=== PATIENT | male | born 1980 | race Caucasian/White ===

== ENCOUNTER 2020-02-14 11:02 | Observation (INO) ==
[2020-02-14] MEDS ORDERED: *HR* LORazepam 1 MG TABLET PO ONE (11:24)
[2020-02-14 11:45] LABS: Basophils # 0.1 K/mcL (0.0-0.2); Basophils % 0.7 %; Eosinophils # 0.1 K/mcL (0.0-0.6); Eosinophils % 0.8 %; Hematocrit 45.8 % (37.5-50.1); Hemoglobin 15.8 g/dL (12.9-16.9); Immature Granulocytes % 0.5 % (0-4); Lymphocytes # 2.4 K/mcL (0.6-4.6); Lymphocytes % 24.4 %; Mean Corpuscular HGB Conc 34.5 g/dL (31.6-35.5); Mean Corpuscular Hemoglobin 32.2 pg (28.0-33.3); Mean Corpuscular Volume 93.5 fL (83.0-100.0); Mean Platelet Volume 9.2 fL (9.4-12.4); Monocytes # 0.7 K/mcL (0.0-1.3); Monocytes % 6.9 %; Neutrophils # 6.6 K/mcL (1.6-8.9); Platelet Count 336 K/mcL (140-400); Red Cell Distribution Width 12.6 % (11.5-14.5); Segmented Neutrophils % 66.7 %; White Blood Count 9.9 K/mcL (4.3-11.1)
[2020-02-14 11:59] LABS: Amphetamine Screen,Urine Negative ng/mL (Cutoff=1000); Barbiturate Screen,Urine Negative ng/mL (Cutoff=200); Benzodiazepines Screen,Urine Negative ng/mL (Cutoff=200); Cannabinoid Screen,Urine Negative ng/mL (Cutoff = 50); Cocaine Screen,Urine Negative ng/mL (Cutoff= 300); Opiate Screen,Urine Negative ng/mL (Cutoff=300); Phencyclidine Screen,Urine Negative ng/mL (Cutoff=25)
[2020-02-14 12:00] LABS: Amorphous Sediment,Urine Few per hpf (None-Few); Bacteria,Urine Few per hpf (None-Few); Bilirubin,Urine Negative (Negative); Blood,Urine Negative (Negative); Clarity,Urine Turbid (Clear); Color,Urine Yellow (Yellow); Glucose,Urine (UA) Normal (Normal); Ketones,Urine Negative (Negative); Leukocyte Esterase,Urine Negative (Negative); Mucus,Urine Few per lpf (None-Few); Nitrite,Urine Negative (Negative); PH,Urine 7.5 pH Units (5.0-8.0); Protein,Urine Trace mg/dL (Neg-Trace); Specific Gravity,Urine 1.016 (1.010-1.025); Urobilinogen,Urine Normal (Normal); WBC,Urine 0-3 per hpf (0-3)
[2020-02-14 12:18] LABS: Acetaminophen < 10 mcg/mL (10-20); BUN/Creatinine Ratio 10 (6-26); Blood Urea Nitrogen 8 mg/dL (6-20); Calcium 9.6 mg/dL (8.6-10.3); Carbon Dioxide 23 mEq/L (23-29); Chloride 102 mEq/L (98-107); Ethanol < 10 mg/dL (Less than 10); Glucose 100 mg/dL (70-105); Osmolality,Calculated 280 (280-300); Potassium 3.7 mEq/L (3.5-5.1); Salicylate < 2.5 mg/dL (15.0-30.0); Sodium 136 mEq/L (136-145); eGFR For African Americans > 60 (> 60); eGFR For Non-African Americans > 60 (> 60)
[2020-02-14] MEDS ORDERED: Naloxone 0.4 MG/ML INJ IVP PRN (14:31)
[2020-02-14] MEDS ORDERED: Ondansetron 4 MG/2 ML VIAL IVP PRN (14:31)
[2020-02-14] MEDS ORDERED: *HR* LORazepam 2 MG/ML VIAL IVP PRN ×2 (14:36)
[2020-02-14] MEDS: Thiamine (B-1) 100 MG TABLET PO SCH (16:38)
[2020-02-14] MEDS: Folic Acid 1 MG TABLET PO SCH (16:38)
[2020-02-14] MEDS: 0.9 % Sodium Chloride 1,000 ML IVC SCH (16:38)
[2020-02-14] MEDS: *HR* Heparin 5,000 UNIT/ML VIAL SQ SCH (16:39)
[2020-02-14] MEDS: traZODone 50 MG TABLET PO SCH (20:02)
[2020-02-14] MEDS: QUEtiapine Fumarate 25 MG TABLET PO SCH (20:03)
[2020-02-15] MEDS: 0.9 % Sodium Chloride 1,000 ML IVC SCH (02:38)
[2020-02-15 04:31] LABS: Basophils # 0.1 K/mcL (0.0-0.2); Basophils % 0.8 %; Eosinophils # 0.1 K/mcL (0.0-0.6); Eosinophils % 1.4 %; Hematocrit 42.9 % (37.5-50.1); Hemoglobin 14.5 g/dL (12.9-16.9); Immature Granulocytes % 0.5 % (0-4); Lymphocytes # 3.2 K/mcL (0.6-4.6); Lymphocytes % 40.1 %; Mean Corpuscular HGB Conc 33.8 g/dL (31.6-35.5); Mean Corpuscular Hemoglobin 32.2 pg (28.0-33.3); Mean Corpuscular Volume 95.1 fL (83.0-100.0); Mean Platelet Volume 9.3 fL (9.4-12.4); Monocytes # 0.6 K/mcL (0.0-1.3); Monocytes % 7.2 %; Platelet Count 270 K/mcL (140-400); Red Blood Count 4.51 M/mcL (4.19-5.50); Red Cell Distribution Width 12.7 % (11.5-14.5)
[2020-02-15 04:51] LABS: BUN/Creatinine Ratio 10 (6-26); Blood Urea Nitrogen 10 mg/dL (6-20); Calcium 8.7 mg/dL (8.6-10.3); Carbon Dioxide 24 mEq/L (23-29); Chloride 106 mEq/L (98-107); Glucose 93 mg/dL (70-105); Osmolality,Calculated 285 (280-300); Sodium 138 mEq/L (136-145); eGFR For African Americans > 60 (> 60); eGFR For Non-African Americans > 60 (> 60)
[2020-02-15] MEDS: *HR* LORazepam 2 MG/ML VIAL IVP PRN ×2 (05:47→12:39)
[2020-02-15] MEDS: *HR* Heparin 5,000 UNIT/ML VIAL SQ SCH ×2 (05:47→18:19)
[2020-02-15] MEDS: Thiamine (B-1) 100 MG TABLET PO SCH (08:44)
[2020-02-15] MEDS: rOPINIRole 1 MG TABLET PO SCH (08:44)
[2020-02-15] MEDS: OLANZapine 10 MG TAB.RAPDIS PO SCH (08:44)
[2020-02-15] MEDS: FLUoxetine 20 MG CAPSULE PO SCH (08:44)
[2020-02-15] MEDS: lamoTRIgine 100 MG TABLET PO SCH (08:44)
[2020-02-15] MEDS: Folic Acid 1 MG TABLET PO SCH (08:44)
[2020-02-15] MEDS ORDERED: Naltrexone HCl 50 MG TABLET PO SCH (09:00)
[2020-02-15] MEDS: QUEtiapine Fumarate 25 MG TABLET PO SCH (20:11)
[2020-02-15] MEDS: traZODone 50 MG TABLET PO SCH (20:12)
[2020-02-16] MEDS: *HR* LORazepam 2 MG/ML VIAL IVP PRN ×2 (02:03→10:19)
[2020-02-16 02:48] LABS: Hematocrit 43.8 % (37.5-50.1); Hemoglobin 14.6 g/dL (12.9-16.9); Mean Corpuscular HGB Conc 33.3 g/dL (31.6-35.5); Mean Corpuscular Hemoglobin 32.6 pg (28.0-33.3); Mean Corpuscular Volume 97.8 fL (83.0-100.0); Mean Platelet Volume 9.6 fL (9.4-12.4); Platelet Count 286 K/mcL (140-400); Red Blood Count 4.48 M/mcL (4.19-5.50); Red Cell Distribution Width 12.9 % (11.5-14.5); White Blood Count 9.9 K/mcL (4.3-11.1)
[2020-02-16 03:09] LABS: Alanine Aminotransferase 16 Units/L (7-52); Albumin/Globulin Ratio 1.6 (1.1-2.2); Alkaline Phosphatase 85 Units/L (34-104); Aspartate Amino Transferase 16 Units/L (13-39); BUN/Creatinine Ratio 15 (6-26); Bilirubin,Total 0.5 mg/dL (0.3-1.0); Blood Urea Nitrogen 15 mg/dL (6-20); Calcium 8.9 mg/dL (8.6-10.3); Carbon Dioxide 26 mEq/L (23-29); Chloride 106 mEq/L (98-107); Globulin 2.5 g/dL (2.4-3.5); Glucose 101 mg/dL (70-105); Osmolality,Calculated 289 (280-300); Phosphorous 3.9 mg/dL (2.7-4.5); Potassium 3.8 mEq/L (3.5-5.1); Sodium 139 mEq/L (136-145); Total Protein 6.5 g/dL (6.4-8.9); eGFR For African Americans > 60 (> 60); eGFR For Non-African Americans > 60 (> 60)
[2020-02-16] MEDS: Nicotine 2 MG GUM BC PRN ×2 (03:16→08:52)
[2020-02-16] MEDS: *HR* Heparin 5,000 UNIT/ML VIAL SQ SCH (05:55)
[2020-02-16 05:59] VITALS: BP 103/69
[2020-02-16] MEDS: rOPINIRole 1 MG TABLET PO SCH (08:51)
[2020-02-16] MEDS: FLUoxetine 20 MG CAPSULE PO SCH (08:52)
[2020-02-16] MEDS: Thiamine (B-1) 100 MG TABLET PO SCH (08:52)
[2020-02-16] MEDS: OLANZapine 10 MG TAB.RAPDIS PO SCH (08:52)
[2020-02-16] MEDS: lamoTRIgine 100 MG TABLET PO SCH (08:52)
[2020-02-16] MEDS: Folic Acid 1 MG TABLET PO SCH (08:52)
== END 2020-02-16 14:44 ==
LOC: EMEROOARM 11:02 → 3BNU 11:02 → SUATTDRO 13:42 → 3BNU 14:41
PROVIDERS: ADMIT Internal Medicine; ATTEND Family Medicine

== ENCOUNTER 2020-10-08 09:21 | Observation (INO) ==
[2020-10-08] MEDS ORDERED: Folic Acid 1 MG in 0.9 % Sodium Chloride 50 ML IVPB STA (09:52)
[2020-10-08] MEDS ORDERED: Thiamine (B-1) 100 MG in 0.9 % Sodium Chloride 50 ML IVPB STA (09:52)
[2020-10-08] MEDS ORDERED: *HR* LORazepam 2 MG/ML VIAL IM ONE (09:52)
[2020-10-08] MEDS ORDERED: 0.9 % Sodium Chloride 1,000 ML IVC ONE (09:52)
[2020-10-08] MEDS ORDERED: *HR* LORazepam 2 MG/ML VIAL IVP PRN ×4 (09:53→13:34)
[2020-10-08] MEDS ORDERED: *HR* LORazepam 2 MG/ML VIAL IVP ONE (10:08)
[2020-10-08 10:15] LABS: Basophils # 0.1 K/mcL (0.0-0.2); Basophils % 0.7 %; Eosinophils % 0.4 %; Hematocrit 47.3 % (37.5-50.1); Immature Granulocytes % 0.6 % (0-4); Lymphocytes % 20.4 %; Mean Corpuscular HGB Conc 33.8 g/dL (31.6-35.5); Mean Corpuscular Hemoglobin 31.7 pg (28.0-33.3); Mean Corpuscular Volume 93.8 fL (83.0-100.0); Mean Platelet Volume 8.9 fL (9.4-12.4); Monocytes # 0.7 K/mcL (0.0-1.3); Monocytes % 6.9 %; Neutrophils # 6.8 K/mcL (1.6-8.9); Platelet Count 423 K/mcL (140-400); Red Blood Count 5.04 M/mcL (4.19-5.50); Red Cell Distribution Width 11.9 % (11.5-14.5); White Blood Count 9.5 K/mcL (4.3-11.1)
[2020-10-08 10:35] LABS: Acetaminophen < 10 mcg/mL (10-20); Alanine Aminotransferase 19 Units/L (7-52); Albumin 4.4 g/dL (3.5-5.7); Albumin/Globulin Ratio 1.5 (1.1-2.2); Alkaline Phosphatase 85 Units/L (34-104); Aspartate Amino Transferase 21 Units/L (13-39); BUN/Creatinine Ratio 10 (6-26); Bilirubin,Direct 0.1 mg/dL (0.0-0.2); Bilirubin,Indirect 0.5 mg/dL (0.0-1.0); Bilirubin,Total 0.6 mg/dL (0.3-1.0); Blood Urea Nitrogen 9 mg/dL (6-20); Calcium 9.1 mg/dL (8.6-10.3); Carbon Dioxide 26 mEq/L (23-29); Chloride 103 mEq/L (98-107); Ethanol < 10 mg/dL (Less than 10); Glucose 89 mg/dL (70-105); Osmolality,Calculated 282 (280-300); Potassium 3.6 mEq/L (3.5-5.1); Salicylate < 2.5 mg/dL (15.0-30.0); Sodium 137 mEq/L (136-145); Total Protein 7.4 g/dL (6.4-8.9); eGFR For African Americans > 60 (> 60); eGFR For Non-African Americans > 60 (> 60)
[2020-10-08 12:35] LABS: Bilirubin,Urine Negative (Negative); Blood,Urine Negative (Negative); Clarity,Urine Clear (Clear); Color,Urine Colorless (Yellow); Glucose,Urine (UA) Normal (Normal); Ketones,Urine Negative (Negative); Leukocyte Esterase,Urine Negative (Negative); Nitrite,Urine Negative (Negative); PH,Urine 7.5 pH Units (5.0-8.0); Protein,Urine Negative (Neg-Trace); Urobilinogen,Urine Normal (Normal)
[2020-10-08 12:43] LABS: Amphetamine Screen,Urine Negative ng/mL (Cutoff=1000); Barbiturate Screen,Urine Negative ng/mL (Cutoff=200); Benzodiazepines Screen,Urine Negative ng/mL (Cutoff=200); Cannabinoid Screen,Urine Negative ng/mL (Cutoff = 50); Cocaine Screen,Urine Negative ng/mL (Cutoff= 300); Opiate Screen,Urine Negative ng/mL (Cutoff=300); Phencyclidine Screen,Urine Negative ng/mL (Cutoff=25)
[2020-10-08] MEDS ORDERED: Melatonin 3 MG TABLET PO PRN (13:32)
[2020-10-08] MEDS ORDERED: Mag Hydrox/Al Hydrox/Simeth 30 ML UDC PO PRN (13:32)
[2020-10-08] MEDS ORDERED: Ondansetron 4 MG/2 ML VIAL IVP PRN (13:32)
[2020-10-08] MEDS ORDERED: MOM Conc 10 ML UD.LIQ PO PRN (13:32)
[2020-10-08] MEDS ORDERED: Naloxone 0.4 MG/ML INJ IVP PRN (13:32)
[2020-10-08] MEDS: Nicotine 21 MG PATCH.TD24 TD SCH (14:53)
[2020-10-09] MEDS: *HR* Enoxaparin 40 MG/0.4 ML SYRINGE SQ SCH (05:57)
[2020-10-09 06:08] LABS: Hematocrit 46.1 % (37.5-50.1); Hemoglobin 15.8 g/dL (12.9-16.9); Mean Corpuscular HGB Conc 34.3 g/dL (31.6-35.5); Mean Corpuscular Hemoglobin 32.4 pg (28.0-33.3); Mean Corpuscular Volume 94.7 fL (83.0-100.0); Mean Platelet Volume 9.4 fL (9.4-12.4); Platelet Count 383 K/mcL (140-400); Red Blood Count 4.87 M/mcL (4.19-5.50); Red Cell Distribution Width 11.9 % (11.5-14.5); White Blood Count 10.7 K/mcL (4.3-11.1)
[2020-10-09 06:39] LABS: Alanine Aminotransferase 19 Units/L (7-52); Albumin 4.2 g/dL (3.5-5.7); Albumin/Globulin Ratio 1.7 (1.1-2.2); Alkaline Phosphatase 80 Units/L (34-104); Aspartate Amino Transferase 22 Units/L (13-39); BUN/Creatinine Ratio 11 (6-26); Bilirubin,Total 1.3 mg/dL (0.3-1.0); Blood Urea Nitrogen 10 mg/dL (6-20); Carbon Dioxide 24 mEq/L (23-29); Chloride 103 mEq/L (98-107); Globulin 2.5 g/dL (2.4-3.5); Glucose 101 mg/dL (70-105); Osmolality,Calculated 281 (280-300); Potassium 3.9 mEq/L (3.5-5.1); Sodium 136 mEq/L (136-145); Total Protein 6.7 g/dL (6.4-8.9); eGFR For African Americans > 60 (> 60); eGFR For Non-African Americans > 60 (> 60)
[2020-10-09] MEDS: Nicotine 21 MG PATCH.TD24 TD SCH (08:52)
[2020-10-09] MEDS: Thiamine (B-1) 100 MG TABLET PO SCH (08:52)
[2020-10-09] MEDS: Folic Acid 1 MG TABLET PO SCH (08:52)
[2020-10-09] MEDS ORDERED: Nicotine 21 MG PATCH.TD24 TD SCH (09:00)
[2020-10-09] MEDS ORDERED: *HR* LORazepam 2 MG/ML VIAL IVP ONE (09:02)
[2020-10-09] MEDS: FLUoxetine 20 MG CAPSULE PO SCH (10:21)
[2020-10-09] MEDS: lamoTRIgine 25 MG TABLET PO SCH (10:21)
[2020-10-09] MEDS: rOPINIRole 1 MG TABLET PO SCH (19:54)
[2020-10-10] MEDS: *HR* Enoxaparin 40 MG/0.4 ML SYRINGE SQ SCH (05:01)
[2020-10-10] MEDS: FLUoxetine 20 MG CAPSULE PO SCH (08:08)
[2020-10-10] MEDS: Folic Acid 1 MG TABLET PO SCH (08:08)
[2020-10-10] MEDS: lamoTRIgine 25 MG TABLET PO SCH (08:08)
[2020-10-10] MEDS: Nicotine 21 MG PATCH.TD24 TD SCH (08:08)
[2020-10-10] MEDS: Thiamine (B-1) 100 MG TABLET PO SCH (08:12)
[2020-10-10 08:31] LABS: Albumin 4.2 g/dL (3.5-5.7); Albumin/Globulin Ratio 1.6 (1.1-2.2); Bilirubin,Direct 0.1 mg/dL (0.0-0.2); Bilirubin,Indirect 0.7 mg/dL (0.0-1.0); Bilirubin,Total 0.8 mg/dL (0.3-1.0); Globulin 2.7 g/dL (2.4-3.5); Total Protein 6.9 g/dL (6.4-8.9)
[2020-10-10] MEDS: rOPINIRole 1 MG TABLET PO SCH (20:21)
[2020-10-11] MEDS: *HR* Enoxaparin 40 MG/0.4 ML SYRINGE SQ SCH (05:09)
[2020-10-11 06:31] LABS: Hematocrit 44.4 % (37.5-50.1); Hemoglobin 14.6 g/dL (12.9-16.9); Mean Corpuscular HGB Conc 32.9 g/dL (31.6-35.5); Mean Corpuscular Hemoglobin 31.5 pg (28.0-33.3); Mean Corpuscular Volume 95.7 fL (83.0-100.0); Mean Platelet Volume 9.5 fL (9.4-12.4); Platelet Count 348 K/mcL (140-400); Red Blood Count 4.64 M/mcL (4.19-5.50); Red Cell Distribution Width 11.9 % (11.5-14.5); White Blood Count 9.8 K/mcL (4.3-11.1)
[2020-10-11 07:15] VITALS: BP 105/73
[2020-10-11] MEDS: Thiamine (B-1) 100 MG TABLET PO SCH (08:41)
[2020-10-11] MEDS: lamoTRIgine 25 MG TABLET PO SCH (08:41)
[2020-10-11] MEDS: Folic Acid 1 MG TABLET PO SCH (08:41)
[2020-10-11] MEDS: Nicotine 21 MG PATCH.TD24 TD SCH (08:41)
[2020-10-11] MEDS: FLUoxetine 20 MG CAPSULE PO SCH (08:41)
== END 2020-10-11 10:13 | disposition other institution (70) ==
LOC: 3BNU 09:21 → EMEROOARM 09:21 → SUATTDRO 12:55 → 3BNU 13:43
PROVIDERS: ADMIT Internal Medicine; ATTEND Nurse Practitioner

== ENCOUNTER 2020-11-10 09:45 | Observation (INO) ==
[2020-11-10] MEDS ORDERED: Melatonin 3 MG TABLET PO PRN (12:03)
[2020-11-10] MEDS ORDERED: Naloxone 0.4 MG/ML INJ IVP PRN (12:03)
[2020-11-10] MEDS ORDERED: MOM Conc 10 ML UD.LIQ PO PRN (12:03)
[2020-11-10] MEDS ORDERED: Ondansetron ODT 4 MG TAB.RAPDIS SL PRN (12:03)
[2020-11-10] MEDS ORDERED: *HR* LORazepam 2 MG/ML VIAL IVP PRN ×2 (12:05)
[2020-11-10] MEDS ORDERED: *HR* LORazepam 2 MG/ML VIAL IVP ONE (13:21)
[2020-11-11] MEDS: Vitamin B Complex/Vit C/Vit E 1 EACH TABLET PO SCH (08:25)
[2020-11-11] MEDS: Folic Acid 1 MG TABLET PO SCH (08:25)
[2020-11-11] MEDS: *HR* LORazepam 2 MG/ML VIAL IVP PRN ×3 (08:25→23:05)
[2020-11-11] MEDS: Thiamine (B-1) 100 MG TABLET PO SCH (08:25)
[2020-11-11] MEDS ORDERED: rOPINIRole 1 MG TABLET PO SCH (21:00)
[2020-11-11] MEDS ORDERED: OLANZapine 10 MG TAB.RAPDIS PO SCH (21:00)
[2020-11-12] MEDS ORDERED: tiZANidine 4 MG TABLET PO ONE (01:03)
[2020-11-12 01:52] LABS: Hematocrit 43.1 % (37.5-50.1); Hemoglobin 14.4 g/dL (12.9-16.9); Mean Corpuscular HGB Conc 33.4 g/dL (31.6-35.5); Mean Corpuscular Hemoglobin 30.9 pg (28.0-33.3); Mean Corpuscular Volume 92.5 fL (83.0-100.0); Mean Platelet Volume 9.6 fL (9.4-12.4); Platelet Count 339 K/mcL (140-400); Red Blood Count 4.66 M/mcL (4.19-5.50); Red Cell Distribution Width 11.9 % (11.5-14.5); White Blood Count 12.3 K/mcL (4.3-11.1)
[2020-11-12 02:12] LABS: Alanine Aminotransferase 28 Units/L (7-52); Albumin/Globulin Ratio 1.5 (1.1-2.2); Alkaline Phosphatase 92 Units/L (34-104); Aspartate Amino Transferase 30 Units/L (13-39); BUN/Creatinine Ratio 17 (6-26); Bilirubin,Total 0.8 mg/dL (0.3-1.0); Blood Urea Nitrogen 17 mg/dL (6-20); Calcium 8.8 mg/dL (8.6-10.3); Carbon Dioxide 23 mEq/L (23-29); Chloride 105 mEq/L (98-107); Globulin 2.7 g/dL (2.4-3.5); Glucose 101 mg/dL (70-105); Osmolality,Calculated 288 (280-300); Potassium 3.9 mEq/L (3.5-5.1); Sodium 138 mEq/L (136-145); Total Protein 6.7 g/dL (6.4-8.9); eGFR For African Americans > 60 (> 60); eGFR For Non-African Americans > 60 (> 60)
[2020-11-12] MEDS: Folic Acid 1 MG TABLET PO SCH (07:20)
[2020-11-12] MEDS: Thiamine (B-1) 100 MG TABLET PO SCH (07:20)
[2020-11-12] MEDS: Vitamin B Complex/Vit C/Vit E 1 EACH TABLET PO SCH (07:20)
[2020-11-12 07:44] VITALS: BP 120/75
[2020-11-12] MEDS ORDERED: FLUoxetine 20 MG CAPSULE PO SCH (09:00)
[2020-11-12] MEDS ORDERED: lamoTRIgine 100 MG TABLET PO SCH (09:00)
== END 2020-11-12 10:14 | disposition left against medical advice (07) ==
LOC: 3BNU → SUATTDRO 11:49 → 3BNU 11-12 00:07
PROVIDERS: ADMIT Internal Medicine; ATTEND Nurse Practitioner